=== PATIENT | female | born 1935 | race Caucasian/White ===

== ENCOUNTER 2018-07-24 07:36 | Day surgery (SDC) | payer MEDICARE ==
[~2018-07-24] VITALS: Ht 167.6 cm; Wt 90.7 kg
[~2018-07-24 07:36] MED LIST: ATORVASTATIN CA40 MG PO; CIPROFLOXACN500 MG PO; DILAUDID 2MG2 MG/TA1 PO; DITROPAN XL10 MG PO; FISH OI1; KEFLEX250 MG PO; LOMOTIL2.5 MG PO; MECLIZINE12.5 M1 PO; MECLIZINE25 MG PO; OXYBUTYNIN10 MG PO; PRILOSEC OTC20 MG PO; PRILOSEC20 MG PO; TOVIAZ8 MG PO; TRICOR145 MG PO; TYLENOL325 M2 PO; VYTORIN 10/401 TAB PO; ZOFRAN ODT4 MG PO
[2018-07-24 10:03] VITALS: BP 92/54
== END 2018-07-24 10:00 | disposition home or self-care (01) ==
LOC: ENDO 07:36 → ORM 11:15 → ENDO 11:15
PROVIDERS: ATTEND Surgery
PROC: 0DB48ZX Excision of Esophagogastric Junction, Via Natural or Artificial Opening Endoscopic, Diagnostic (ICD-10-PCS; principal; 2018-07-24)
PROC: 0DB78ZX Excision of Stomach, Pylorus, Via Natural or Artificial Opening Endoscopic, Diagnostic (ICD-10-PCS; 2018-07-24)
DX: R13.10 Dysphagia, unspecified (principal); K21.0 Gastro-esophageal reflux disease with esophagitis; K29.50 Unspecified chronic gastritis without bleeding; K44.9 Diaphragmatic hernia without obstruction or gangrene

== ENCOUNTER 2021-04-19 14:11 | Observation (INO) | payer MEDICARE ==
[~2021-04-19] VITALS: Ht 167.6 cm; Wt 90.0 kg
--- NOTE | 2021-04-19 14:11 | NUR ---
PT TO ROOM VIA WC IMMEDIATELY; DR BUSH AT BEDSIDE
[2021-04-19 14:50] LABS: HEMATOCRIT 45.1 % (37.0-47.0); HEMOGLOBIN 14.9 g/dl (12.0-16.0); IMMATURE GRANULOCYTES 0.1 % (0.0-5.0); MEAN CELL VOLUME 97.6 fL CALC (80.0-100.0); MEAN CORPUSCULAR HGB 32.3 pG CALC (26.0-32.0); NEUT# 5.15 thou/uL (2.00-7.15); RED BLOOD COUNT 4.62 mill/uL (4.20-5.60); RED CELL DISTRI WIDTH 13.1 % (11.5-15.5)
[2021-04-19 14:53] LABS: ALBUMIN 4.1 g/dL (3.2-5.0); ALKALINE PHOSPHATASE 65 u/l (38-126); AMYLASE 53 u/l (30-110); ANION GAP 14 (6-22 (CALC)); BILIRUBIN, TOTAL 0.9 mg/dL (0.0-1.4); BUN 11 mg/dL (8-23); BUN/CREATININE RATIO 14 (12-20 (CALC)); CARBON DIOXIDE 24 mmol/l (22-30); CHLORIDE 98 mmol/l (95-108); CREATININE 0.8 mg/dL (0.5-1.0); GFR > 60 ML/MIN (>=60 (CALC)); GFR FOR AFR.AMER. > 60 ML/MIN (>=60 (CALC)); LIPASE 34 u/l (23-300); MAGNESIUM 1.7 mg/dL (1.6-2.3); POTASSIUM 4.3 mmol/l (3.5-5.1); SGOT/AST 34 u/l (9-36); SODIUM 132 mmol/l (137-146); TOTAL PROTEIN 8.2 g/dL (6.3-8.2)
[2021-04-19 15:00] LABS: ACT PARTIAL THROMBO TIME 25.2 SECONDS (20.0-32.5); INTERNATIONAL NORMALIZED RATIO 1.1 RATIO (0.7-1.3); PROTHROMBIN TIME 11.9 SECONDS (9.0-12.5)
--- NOTE | 2021-04-19 15:16 | NUR ---
PT AMBULATING TO THE BATHROOM FOR COLLECTION OF UA.
[2021-04-19 15:23] LABS: TSH, 3RD GENERATION 1.53 uIU/mL (0.47 - 4.68)
[2021-04-19 15:37] LABS: URINE BILIRUBIN - DIPSTICK NEGATIVE (NEGATIVE); URINE BLOOD DIPSTICK NEGATIVE (NEGATIVE); URINE COLOR YELLOW; URINE GLUCOSE - DIPSTICK NEGATIVE (NEGATIVE); URINE KETONE NEGATIVE (NEGATIVE); URINE PH 5.5 (4.5-8.0); URINE PROTEIN - DIPSTICK NEGATIVE (NEG-TRACE); URINE UROBILINOGEN - DIPSTICK 0.2 E.U./dL (0.2)
[2021-04-19 15:40] LABS: URINE LEUK ESTERASE MODERATE (NEGATIVE); URINE NITRITE - DIPSTICK NEGATIVE (Negative); URINE SQUAMOUS EPITHELIAL CELL MANY EPI/hpf (0-FEW)
--- NOTE | 2021-04-19 16:53 | NUR ---
PT UP TO BATHROOM WITH STEADY GAIT. IV FLUIDS CONTINUE TO INFUSE WITHOUT DIFFICULTY.
--- NOTE | 2021-04-19 17:42 | NUR ---
IV FLUIDS COMPLETED. PENDING ADMISSION. NO CONCERNS VOICED. CALL LIGHT WITHIN REACH. BED IN LOW POSITION.
--- NOTE | 2021-04-19 18:24 | NUR ---
DINNER PROVIDED TO PT. SITTING ON SIDE OF BED WITH EASE. ALL ITEMS WITHIN REACH.
--- NOTE | 2021-04-19 20:22 | NUR ---
TELEPHONE REPORT GIVEN TO Jason MARAVILLA RN ON [employer]
--- NOTE | 2021-04-19 20:39 | NUR ---
PT UP TO ROOM 262 VIA WC, ACCOMPANIED BY Matthew APRDO LPN.
[2021-04-19 20:40] VITALS: BP 133/61
--- NOTE | 2021-04-19 21:30 | NUR ---
PATIENT ARRIVED TO FLOOR AT 2039 VIA WHEELCHAIR, PATIENT AMBULATORY WITH ONE ASSIST, PATIENT ALERT ORIENTED, DENIES PAIN OR DISCOMFORTS AT THIS TIME, ADMISSION ASSESSMENT COMPLETED, PATIENT IS HOOKED ON TELEMETRY, ORINTED TO ROOM AND CALL LIGHT SYSTEM.
--- NOTE | 2021-04-19 22:11 | NUR ---
PATIENT MOVED TO ROOM 263, R/T TELEVISION MALFUNCTION.REGISTRATION AWARE.
[2021-04-20] VITALS (7 sets, daily range): BP systolic 100–151; BP diastolic 61–93
--- NOTE | 2021-04-20 | NUR ---
PATIENT RESTING IN BED WITH EYES CLOSED, BREATHING EVEN UN;ABORED CALL LIGHTT AT REACH.
--- NOTE | 2021-04-20 04:15 | NUR ---
RECEIVED A PHONE CALL FROM ED, PATIENT HEART RATE WAS 135 BPM, PATIENT STATED JUST GOT BACK FROM THE BATHROOM, ASSESSED HR IS BACK AT [phone] WILL CONTINUE TO MONITOR.
--- NOTE | 2021-04-20 04:25 | NUR ---
RECEIVED ANOTHER CALL FROM ED, PATIENT HAS RHTHM CHANGED AFIB, EKG ORDERED.
--- NOTE | 2021-04-20 04:39 | NUR ---
PATIENT DENIES CHEST DISCOMFORTS, V/S TAKEN FOLLWS: BP 148/81 TEMP 97.1 P85 POX 98%, EKG TAKEN,PATIENT IS ASYMPTOMATIC, ED CALLED ABOUT EKG RESULT.WILL CONTINUE TO MONITOR.
[2021-04-20 06:33] LABS: CHOLESTEROL HDL RATIO 4.3 (<4.4 (CALC)); MAGNESIUM 1.7 mg/dL (1.6-2.3)
[2021-04-20] MEDS ORDERED: DITROPAN5 MG/TA1 PO ×2 (07:18→07:19)
--- NOTE | 2021-04-20 07:24 | NUR ---
PT note Patient is screened for PT intervention and no needs are identified with chart review.
--- NOTE | 2021-04-20 07:54 | NUR ---
PT SITTING IN BED. A&O X4. NO DISTRESS NOTED. PT DENIES ANY CP AT THIS TIME. CURRENTLY SR ON MONITOR WITH A RATE OF 85 WITH 1DEGREEE AVB. CLEAR BREATH SOUNDS UPON AUSCULTATION. ACTIVE BOWEL SOUNDS X4 QUADRANTS. #20G & #20G RFA HEALTHY AND PATENT. ASSESSMENT COMPLETED. DISCUSSED POC. CALL LIGHT WITHIN REACH.
--- NOTE | 2021-04-20 09:31 | NUR ---
DR DAVIS AND Lexi CASTELLANOS APRN AT BEDSIDE DISCUSSING POC
--- NOTE | 2021-04-20 10:50 | NUR ---
PT SITTING IN BED. NO DISTRESS NOTED. CALL LIGHT WITHIN REACH.
--- NOTE | 2021-04-20 16:50 | NUR ---
RT AT BEDSIDE OBTAINING EKG
--- NOTE | 2021-04-20 19:00 | NUR ---
REPORT RECEIVED FROM JATIN, PATIENT RESTING IN BED, CALL LIGHT AT REACH.
--- NOTE | 2021-04-20 20:00 | NUR ---
PATIENT ALERT ORINETED ABLE TO MAKE NEEDS KNOWN, WITH SALINE LOCK ON RAC G20 AMD RT FOREARM G20, BOTH PATENT FLUSHES WELL, HOOKED ON TELEMETRY SR 82 WITH PAC/ 1 DEGREE AVB, DENIES CHEST DISCOMFORTS, IS C/O OF HEADACHE, STATED HAS NOT HAVE A GOOD SLEEP, PRN TYLENOL WAS GIVEN EARLIER, LUNG SOUND CLEAR, ACTIVE BOWEL SOUNDS, WILL CONTINUE TO MONITOR, CALL LIGHT AT REACH.
--- NOTE | 2021-04-21 00:17 | NUR ---
PATIENT RESTING IN BED STILL C/O HEADACHE DUE MOTRIN GIVEN AT THIS TIME, BREATHING UNLABORED, DENIES CHEST DISCOMFORTS, CALL LIGHT AT REACH.
--- NOTE | 2021-04-21 02:32 | NUR ---
RECEIVED A PHONE CALL FROM ED, PATIENT READING 2ND AV BLOCK, PATIENT DENIES SHEST PRESSURE OR DISCOMFORTS, V/S TAKEN FOLLOWS: BP 101/59 HR 61, POX 94% ON RA, CALLED ED PATIENT BACK TO SR 72, WILL CONTINUE TO MONITOR.
[2021-04-21 02:35] VITALS: BP 101/59
[2021-04-21 04:07] VITALS: BP 120/62
--- NOTE | 2021-04-21 04:43 | NUR ---
PATIENT RESTING IN BED, DENIES PAIN OR DISCOMFORTS AT THIS TIME, CALL LIGHT AT REACH.
[2021-04-21 05:47] LABS: HEMATOCRIT 42.5 % (37.0-47.0); MEAN CELL VOLUME 99.1 fL CALC (80.0-100.0); MEAN CORPUSCULAR HGB 32.6 pG CALC (26.0-32.0); MEAN CORPUSCULAR HGB CONC 32.9 g/dL CAL (32.0-36.0); RED BLOOD COUNT 4.29 mill/uL (4.20-5.60); RED CELL DISTRI WIDTH 13.6 % (11.5-15.5)
[2021-04-21 06:08] LABS: ANION GAP 13 (6-22 (CALC)); BUN 12 mg/dL (8-23); BUN/CREATININE RATIO 15 (12-20 (CALC)); CARBON DIOXIDE 25 mmol/l (22-30); CHLORIDE 100 mmol/l (95-108); CREATININE 0.8 mg/dL (0.5-1.0); GFR > 60 ML/MIN (>=60 (CALC)); GFR FOR AFR.AMER. > 60 ML/MIN (>=60 (CALC)); MAGNESIUM 2.1 mg/dL (1.6-2.3); POTASSIUM 4.3 mmol/l (3.5-5.1); SODIUM 133 mmol/l (137-146)
--- NOTE | 2021-04-21 07:00 | NUR ---
PT REPORT RECEIVED FROM NIGHT NURSEGITA
--- NOTE | 2021-04-21 08:00 | NUR ---
PT WAS FOUND RESTING IN BED IN SEMI-DAAMS'S POSITION;PT IS A&OX3;VS AND ASSESSMENT WERE COMPLETED;PT HAS NO REPORTS OF PAIN AT THIS TIME;HEART SOUNDS ARE REGULAR IN RATE AND RHYTHM;TELE IS IN PLACE;LUNG SOUNDS ARE CLEAR;RESPIRATIONS ARE EVEN AND UNLABORED ON RA;ABDOMEN IS SOFT WITH ACTIVE BOWEL SOUNDS ASCULTATED IN ALL QUARANTS;PT HAS TRACE EDEMA PRESENT IN ANKLES BILATERALLY;#20G IV IN RAC AND #20G IV IN RFA ARE SL, PATENT AND APPEAR FREE OF COMPLICATIONS AT THIS TIME;SAFETY PRECAUTIONS IN PLACE;CALL LIGHT WITHIN REACH;PT ENCOURAGED TO CALL WITH ANY NEEDS OR CONCERNS;WILL CONTINUE TO MONITOR.
--- NOTE | 2021-04-21 09:07 | NUR ---
AND DAVIDSON JOHNSON AT BEDSIDE DISCUSSING POC WITH PT
[2021-04-21] MEDS ORDERED: OMNICEF300 MG PO (11:24)
[2021-04-21] MEDS ORDERED: PRILOSEC OTC20 MG PO (11:25)
--- NOTE | 2021-04-21 12:00 | NUR ---
PT WAS FOUND RESTING IN BED EATING LUNCH;PT IS REPORTING NO PAIN AT THIS TIME;TELE IS IN PLACE;PT IS PREPARING FOR DC LATER TODAY;SAFETY PRECAUTIONS IN PLACE;CALL LIGHT WITHIN REACH;WILL CONTINUE TO MONITOR.
[2021-04-21] MEDS ORDERED: PROTONIX40 M2 PO (14:49)
--- NOTE | 2021-04-21 15:56 | NUR ---
Discharge instructions given. Patient verbalizes understanding of same. Discharged in stable condition via Wheelchair to Home with family. All belongings sent with pt. DISCHARGE PACKET WAS GIVEN;DISCHARGE INSTRUCTIONS AND MEDICATIONS WERE EXPLAINED TO PT;PT EXPRESSED UNDERSTANDING AND HAD NO FURTHER QUESTIONS;SIGNATURE WAS OBTAINED;TELE WAS REMOVED;IV WAS REMOVED WITH NO COMPLICATIONS AND CATHETER INTACT; PT WAS TRANSPORTED TO [facility] VIA IN STABLE CONDITION ACCOMPANIED BY STAFF;ALL PT BELONGINGS WERE SENT WITH PT;PT WILL BE TRANSPORTED HOME WITH FAMILY
== END 2021-04-21 15:06 | disposition home or self-care (01) ==
LOC: ED 14:11 → ED-I 17:00 → ED 17:10 → MS2 17:11
PROVIDERS: Nurse Practitioner; ADMIT Internal Medicine; ATTEND Internal Medicine
DX: R07.9 Chest pain, unspecified (principal); N39.0 Urinary tract infection, site not specified; I44.1 Atrioventricular block, second degree; I10 Essential (primary) hypertension; K21.9 Gastro-esophageal reflux disease without esophagitis; E78.5 Hyperlipidemia, unspecified; K29.70 Gastritis, unspecified, without bleeding; B96.20 Unspecified Escherichia coli [E. coli] as the cause of diseases classified elsewhere; Z20.822 Contact with and (suspected) exposure to COVID-19
CPT/HCPCS: G0378; J3475; Q9967

== ENCOUNTER 2021-05-01 08:15 | Observation (INO) | payer MEDICARE ==
[~2021-05-01] VITALS: Ht 167.6 cm; Wt 90.0 kg
[~2021-05-01 08:15] MED LIST changes: +DITROPAN5 MG/TA1 PO; +OMNICEF300 MG PO; +PROTONIX40 M2 PO
[2021-05-01] MEDS ORDERED: PANTOPRAZOLE SO40 M1 PO (08:39)
[2021-05-01 09:06] LABS: HEMATOCRIT 45.1 % (37.0-47.0); HEMOGLOBIN 15.2 g/dl (12.0-16.0); IMMATURE GRANULOCYTES 0.1 % (0.0-5.0); MEAN CORPUSCULAR HGB 32.3 pG CALC (26.0-32.0); MEAN CORPUSCULAR HGB CONC 33.7 g/dL CAL (32.0-36.0); NEUT# 5.13 thou/uL (2.00-7.15); RED BLOOD COUNT 4.7 mill/uL (4.20-5.60); RED CELL DISTRI WIDTH 13.1 % (11.5-15.5)
[2021-05-01 09:18] LABS: URINE BILIRUBIN - DIPSTICK NEGATIVE (NEGATIVE); URINE BLOOD DIPSTICK NEGATIVE (NEGATIVE); URINE COLOR YELLOW; URINE GLUCOSE - DIPSTICK NEGATIVE (NEGATIVE); URINE KETONE NEGATIVE (NEGATIVE); URINE LEUK ESTERASE TRACE (NEGATIVE); URINE PH 6.5 (4.5-8.0); URINE PROTEIN - DIPSTICK NEGATIVE (NEG-TRACE); URINE UROBILINOGEN - DIPSTICK 0.2 E.U./dL (0.2)
[2021-05-01 09:19] LABS: INTERNATIONAL NORMALIZED RATIO 1.1 RATIO (0.7-1.3); PROTHROMBIN TIME 11.2 SECONDS (9.0-12.5)
[2021-05-01 09:22] LABS: ALKALINE PHOSPHATASE 73 u/l (38-126); ANION GAP 14 (6-22 (CALC)); BUN 12 mg/dL (8-23); BUN/CREATININE RATIO 15 (12-20 (CALC)); CARBON DIOXIDE 25 mmol/l (22-30); CHLORIDE 94 mmol/l (95-108); CREATININE 0.8 mg/dL (0.5-1.0); GFR > 60 ML/MIN (>=60 (CALC)); GFR FOR AFR.AMER. > 60 ML/MIN (>=60 (CALC)); LIPASE 34 u/l (23-300); POTASSIUM 3.8 mmol/l (3.5-5.1); SODIUM 129 mmol/l (137-146)
[2021-05-01 09:23] LABS: URINE NITRITE - DIPSTICK NEGATIVE (Negative)
[2021-05-01 09:27] LABS: MAGNESIUM 1.4 mg/dL (1.6-2.3); SGOT/AST 82 u/l (9-36)
[2021-05-01 15:00] VITALS: BP 125/81
[2021-05-01 19:00] VITALS: BP 104/69
[2021-05-02] VITALS: BP 106/66
[2021-05-02 03:59] VITALS: BP 123/72
[2021-05-02 06:35] LABS: ANION GAP 12 (6-22 (CALC)); BUN 10 mg/dL (8-23); BUN/CREATININE RATIO 14 (12-20 (CALC)); CARBON DIOXIDE 22 mmol/l (22-30); CHLORIDE 99 mmol/l (95-108); CREATININE 0.7 mg/dL (0.5-1.0); GFR > 60 ML/MIN (>=60 (CALC)); GFR FOR AFR.AMER. > 60 ML/MIN (>=60 (CALC)); HEMATOCRIT 39.2 % (37.0-47.0); MEAN CORPUSCULAR HGB 32.6 pG CALC (26.0-32.0); MEAN CORPUSCULAR HGB CONC 32.9 g/dL CAL (32.0-36.0); POTASSIUM 3.6 mmol/l (3.5-5.1); RED BLOOD COUNT 3.96 mill/uL (4.20-5.60); RED CELL DISTRI WIDTH 13.6 % (11.5-15.5); SODIUM 129 mmol/l (137-146)
[2021-05-02 06:47] LABS: HEMOGLOBIN 12.9 g/dl (12.0-16.0)
[2021-05-02 07:38] VITALS: BP 117/63
[2021-05-02 10:30] VITALS: BP 108/67
[2021-05-02 15:07] VITALS: BP 106/64
[2021-05-02 18:32] VITALS: BP 112/66
[2021-05-03] VITALS: BP 110/68
[2021-05-03 05:03] VITALS: BP 109/73
[2021-05-03 06:18] LABS: ANION GAP 11 (6-22 (CALC)); BUN 9 mg/dL (8-23); BUN/CREATININE RATIO 13 (12-20 (CALC)); CARBON DIOXIDE 22 mmol/l (22-30); CHLORIDE 98 mmol/l (95-108); CREATININE 0.6 mg/dL (0.5-1.0); GFR > 60 ML/MIN (>=60 (CALC)); GFR FOR AFR.AMER. > 60 ML/MIN (>=60 (CALC)); MAGNESIUM 1.7 mg/dL (1.6-2.3); POTASSIUM 3.7 mmol/l (3.5-5.1); SODIUM 127 mmol/l (137-146)
[2021-05-03 06:21] LABS: HEMATOCRIT 38.2 % (37.0-47.0); HEMOGLOBIN 12.7 g/dl (12.0-16.0); MEAN CELL VOLUME 97.7 fL CALC (80.0-100.0); MEAN CORPUSCULAR HGB 32.5 pG CALC (26.0-32.0); MEAN CORPUSCULAR HGB CONC 33.2 g/dL CAL (32.0-36.0); RED BLOOD COUNT 3.91 mill/uL (4.20-5.60); RED CELL DISTRI WIDTH 13.5 % (11.5-15.5)
[2021-05-03 06:59] VITALS: BP 114/73
[2021-05-03 11:17] VITALS: BP 116/61
[2021-05-03] MEDS ORDERED: LOPRESSOR25 MG PO (12:51)
[2021-05-03] MEDS ORDERED: PRILOSEC OTC20 MG PO (12:51)
[2021-05-03] MEDS ORDERED: PEPCID20 MG PO (12:51)
[2021-05-03 14:15] VITALS: BP 97/58
== END 2021-05-03 17:15 ==
LOC: ED 08:15 → ED-I 11:33 → ED 12:03 → MS2 12:04
PROVIDERS: Family Medicine; Nurse Practitioner; ADMIT Hospitalist; ATTEND Hospitalist
DX: R53.1 Weakness (principal); E83.42 Hypomagnesemia; E87.1 Hypo-osmolality and hyponatremia; K29.70 Gastritis, unspecified, without bleeding; I10 Essential (primary) hypertension; K21.9 Gastro-esophageal reflux disease without esophagitis; E78.5 Hyperlipidemia, unspecified; I44.1 Atrioventricular block, second degree; Z20.822 Contact with and (suspected) exposure to COVID-19
CPT/HCPCS: G0378; J1650; J3475; Q9967

== ENCOUNTER 2022-09-08 11:52 | Emergency (ER) | payer MEDICARE ==
[~2022-09-08] VITALS: Ht 167.6 cm; Wt 89.5 kg
[~2022-09-08 11:52] MED LIST changes: +LOPRESSOR25 MG PO; +PANTOPRAZOLE SO40 M1 PO; +PEPCID20 MG PO
[2022-09-08 12:04] VITALS: BP 131/79
[2022-09-08 12:15] VITALS: BP 131/79
[2022-09-08 12:31] VITALS: BP 139/78
[2022-09-08 12:45] VITALS: BP 140/80
[2022-09-08 13:13] LABS: HEMATOCRIT 41.7 % (37.0-47.0); HEMOGLOBIN 13.8 g/dl (12.0-16.0); IMMATURE GRANULOCYTES 0.3 % (0.0-5.0); MEAN CELL VOLUME 97.9 fL CALC (80.0-100.0); MEAN CORPUSCULAR HGB 32.4 pG CALC (26.0-32.0); MEAN CORPUSCULAR HGB CONC 33.1 g/dL CAL (32.0-36.0); NEUT# 4.84 thou/uL (2.00-7.15); RED BLOOD COUNT 4.26 mill/uL (4.20-5.60); RED CELL DISTRI WIDTH 12.9 % (11.5-15.5)
[2022-09-08 13:30] LABS: ALBUMIN 3.8 g/dL (3.2-5.0); ALKALINE PHOSPHATASE 79 u/l (38-126); ANION GAP 10 (6-22 (CALC)); BILIRUBIN, TOTAL 0.7 mg/dL (0.0-1.4); BUN 13 mg/dL (8-23); BUN/CREATININE RATIO 15 (12-20 (CALC)); CARBON DIOXIDE 28 mmol/l (22-30); CHLORIDE 100 mmol/l (95-108); CREATININE 0.9 mg/dL (0.5-1.0); GFR FOR AFR.AMER. > 60 ML/MIN (>=60 (CALC)); GFR OTHER RACES 59 ML/MIN (>=60 (CALC)); POTASSIUM 4.7 mmol/l (3.5-5.1); SGOT/AST 38 u/l (9-36); SODIUM 134 mmol/l (137-146); TOTAL PROTEIN 7.1 g/dL (6.3-8.2)
[2022-09-08 15:23] VITALS: BP 140/80
== END 2022-09-08 15:28 | disposition home or self-care (01) ==
LOC: ED 11:52
PROVIDERS: Nurse Practitioner
PROC: 0HQEXZZ Repair Left Lower Arm Skin, External Approach (ICD-10-PCS; principal; 2022-09-08)
DX: S51.012A Laceration without foreign body of left elbow, initial encounter (principal); S40.811A Abrasion of right upper arm, initial encounter; M54.6 Pain in thoracic spine; M54.2 Cervicalgia; E78.5 Hyperlipidemia, unspecified; K21.9 Gastro-esophageal reflux disease without esophagitis; W07.XXXA Fall from chair, initial encounter

== ENCOUNTER 2022-09-21 17:21 | Inpatient (IN) | payer MEDICARE ==
[~2022-09-21] VITALS: Ht 167.6 cm; Wt 81.8 kg
[2022-09-21] VITALS (8 sets, daily range): BP systolic 87–139; BP diastolic 42–87
[2022-09-21 18:12] LABS: BASO% 0.1 % (0-3); EOS% 0.1 % (0-8); HEMATOCRIT 41.3 % (37.0-47.0); HEMOGLOBIN 14.1 g/dl (12.0-16.0); IMMATURE GRANULOCYTES 0.2 % (0.0-5.0); LYMPH% 5.3 % (15-41); MEAN CELL VOLUME 94.9 fL CALC (80.0-100.0); MEAN CORPUSCULAR HGB 32.4 pG CALC (26.0-32.0); MEAN CORPUSCULAR HGB CONC 34.1 g/dL CAL (32.0-36.0); MONO% 9.1 % (2-13); NEUT# 14.61 thou/uL (2.00-7.15); NEUT% 85.2 % (42-76); RED BLOOD COUNT 4.35 mill/uL (4.20-5.60); RED CELL DISTRI WIDTH 13.5 % (11.5-15.5)
[2022-09-21 18:36] LABS: ALBUMIN 4.1 g/dL (3.2-5.0); ALKALINE PHOSPHATASE 89 u/l (38-126); ANION GAP 14 (6-22 (CALC)); BILIRUBIN, TOTAL 0.9 mg/dL (0.0-1.4); BUN 21 mg/dL (8-23); BUN/CREATININE RATIO 19 (12-20 (CALC)); CARBON DIOXIDE 27 mmol/l (22-30); CHLORIDE 97 mmol/l (95-108); CREATININE 1.1 mg/dL (0.5-1.0); GFR FOR AFR.AMER. 57 ML/MIN (>=60 (CALC)); GFR OTHER RACES 47 ML/MIN (>=60 (CALC)); POTASSIUM 4.5 mmol/l (3.5-5.1); SGOT/AST 30 u/l (9-36); SODIUM 134 mmol/l (137-146); TOTAL PROTEIN 7.7 g/dL (6.3-8.2)
[2022-09-22] VITALS (7 sets, daily range): BP systolic 96–128; BP diastolic 47–62
[2022-09-22 05:49] LABS: BASO% 0.2 % (0-3); EOS% 0.5 % (0-8); HEMATOCRIT 35.7 % (37.0-47.0); IMMATURE GRANULOCYTES 0.2 % (0.0-5.0); LYMPH% 17.2 % (15-41); MEAN CELL VOLUME 97.3 fL CALC (80.0-100.0); MEAN CORPUSCULAR HGB CONC 33.9 g/dL CAL (32.0-36.0); MONO% 10.8 % (2-13); NEUT# 9.17 thou/uL (2.00-7.15); NEUT% 71.1 % (42-76); RED BLOOD COUNT 3.67 mill/uL (4.20-5.60); RED CELL DISTRI WIDTH 13.6 % (11.5-15.5)
[2022-09-22 05:51] LABS: HEMOGLOBIN 12.1 g/dl (12.0-16.0)
[2022-09-22 06:02] LABS: ALKALINE PHOSPHATASE 61 u/l (38-126); ANION GAP 10 (6-22 (CALC)); BILIRUBIN, TOTAL 0.6 mg/dL (0.0-1.4); BUN 20 mg/dL (8-23); BUN/CREATININE RATIO 24 (12-20 (CALC)); CARBON DIOXIDE 24 mmol/l (22-30); CHLORIDE 103 mmol/l (95-108); CREATININE 0.8 mg/dL (0.5-1.0); GFR FOR AFR.AMER. > 60 ML/MIN (>=60 (CALC)); GFR OTHER RACES > 60 ML/MIN (>=60 (CALC)); POTASSIUM 4.2 mmol/l (3.5-5.1); SGOT/AST 21 u/l (9-36); SODIUM 133 mmol/l (137-146)
[2022-09-22 06:05] LABS: ALBUMIN 2.9 g/dL (3.2-5.0); TOTAL PROTEIN 5.7 g/dL (6.3-8.2)
[2022-09-22 08:40] LABS: URINE BILIRUBIN - DIPSTICK NEGATIVE (NEGATIVE); URINE BLOOD DIPSTICK NEGATIVE (NEGATIVE); URINE COLOR YELLOW; URINE GLUCOSE - DIPSTICK NEGATIVE (NEGATIVE); URINE KETONE TRACE mg/dL (NEGATIVE); URINE LEUK ESTERASE NEGATIVE (NEGATIVE); URINE PH 5.5 (4.5-8.0); URINE PROTEIN - DIPSTICK NEGATIVE (NEG-TRACE); URINE SPECIFIC GRAVITY 1.025; URINE UROBILINOGEN - DIPSTICK 0.2 E.U./dL (0.2)
[2022-09-22 08:58] LABS: URINE NITRITE - DIPSTICK NEGATIVE (Negative)
[2022-09-23] VITALS (8 sets, daily range): BP systolic 113–146; BP diastolic 57–78
[2022-09-23 05:21] LABS: BASO% 0.4 % (0-3); EOS% 2.8 % (0-8); HEMATOCRIT 34.4 % (37.0-47.0); HEMOGLOBIN 11.7 g/dl (12.0-16.0); IMMATURE GRANULOCYTES 0.1 % (0.0-5.0); LYMPH% 18.6 % (15-41); MEAN CELL VOLUME 97.7 fL CALC (80.0-100.0); MEAN CORPUSCULAR HGB 33.2 pG CALC (26.0-32.0); MONO% 9.5 % (2-13); NEUT# 6.88 thou/uL (2.00-7.15); NEUT% 68.6 % (42-76); RED BLOOD COUNT 3.52 mill/uL (4.20-5.60); RED CELL DISTRI WIDTH 13.3 % (11.5-15.5)
[2022-09-23 05:45] LABS: ALBUMIN 2.9 g/dL (3.2-5.0); ALKALINE PHOSPHATASE 59 u/l (38-126); ANION GAP 7 (6-22 (CALC)); BUN 10 mg/dL (8-23); BUN/CREATININE RATIO 16 (12-20 (CALC)); CARBON DIOXIDE 27 mmol/l (22-30); CHLORIDE 104 mmol/l (95-108); CREATININE 0.6 mg/dL (0.5-1.0); GFR FOR AFR.AMER. > 60 ML/MIN (>=60 (CALC)); GFR OTHER RACES > 60 ML/MIN (>=60 (CALC)); POTASSIUM 4.3 mmol/l (3.5-5.1); SGOT/AST 22 u/l (9-36); SODIUM 133 mmol/l (137-146); TOTAL PROTEIN 5.7 g/dL (6.3-8.2)
[2022-09-23 05:46] LABS: BILIRUBIN, TOTAL 0.3 mg/dL (0.0-1.4)
[2022-09-24] VITALS (10 sets, daily range): BP systolic 105–153; BP diastolic 54–78
[2022-09-25 04:33] VITALS: BP 103/69
[2022-09-25 05:10] VITALS: BP 112/70
[2022-09-25 05:45] LABS: ANION GAP 9 (6-22 (CALC)); BUN 4 mg/dL (8-23); BUN/CREATININE RATIO 7 (12-20 (CALC)); CARBON DIOXIDE 29 mmol/l (22-30); CHLORIDE 99 mmol/l (95-108); CREATININE 0.6 mg/dL (0.5-1.0); GFR FOR AFR.AMER. > 60 ML/MIN (>=60 (CALC)); GFR OTHER RACES > 60 ML/MIN (>=60 (CALC)); POTASSIUM 4.1 mmol/l (3.5-5.1); SODIUM 133 mmol/l (137-146)
[2022-09-25 06:15] VITALS: BP 124/61
[2022-09-25 10:22] VITALS: BP 107/73
[2022-09-25 10:37] VITALS: BP 90/55
[2022-09-25 14:25] VITALS: BP 147/64
== END 2022-09-25 16:15 | disposition home health service (06) | DRG 871 ==
LOC: ED 17:21 → ED-I 19:00 → ED 19:04 → MS2 19:05
PROVIDERS: Family Medicine; Nurse Practitioner Family; ADMIT Internal Medicine; ATTEND Internal Medicine
DX: A41.9 Sepsis, unspecified organism (principal); J18.9 Pneumonia, unspecified organism; J96.01 Acute respiratory failure with hypoxia; J44.0 Chronic obstructive pulmonary disease with (acute) lower respiratory infection; R65.20 Severe sepsis without septic shock; I10 Essential (primary) hypertension; E78.5 Hyperlipidemia, unspecified; K21.9 Gastro-esophageal reflux disease without esophagitis; M19.90 Unspecified osteoarthritis, unspecified site; Z95.0 Presence of cardiac pacemaker; Z20.822 Contact with and (suspected) exposure to COVID-19
CPT/HCPCS: J0131; J1650

== ENCOUNTER 2022-10-22 12:34 | Observation (INO) | payer MEDICARE ==
[2022-10-22] VITALS (12 sets, daily range): BP systolic 128–149; BP diastolic 62–80
[~2022-10-22] VITALS: Ht 167.6 cm; Wt 85.9 kg
[2022-10-22 13:44] LABS: BASO% 0.2 % (0-3); EOS% 0.5 % (0-8); HEMATOCRIT 40.2 % (37.0-47.0); HEMOGLOBIN 13.5 g/dl (12.0-16.0); IMMATURE GRANULOCYTES 0.6 % (0.0-5.0); LYMPH% 8.3 % (15-41); MEAN CELL VOLUME 93.7 fL CALC (80.0-100.0); MEAN CORPUSCULAR HGB 31.5 pG CALC (26.0-32.0); MEAN CORPUSCULAR HGB CONC 33.6 g/dL CAL (32.0-36.0); MONO% 5.3 % (2-13); NEUT# 7.2 thou/uL (2.00-7.15); NEUT% 85.1 % (42-76); RED BLOOD COUNT 4.29 mill/uL (4.20-5.60); RED CELL DISTRI WIDTH 12.9 % (11.5-15.5)
[2022-10-22 14:26] LABS: INTERNATIONAL NORMALIZED RATIO 1.2 RATIO (0.7-1.3); PROTHROMBIN TIME 11.4 SECONDS (9.0-12.5)
[2022-10-22 14:27] LABS: ALBUMIN 3.8 g/dL (3.2-5.0); ALKALINE PHOSPHATASE 72 u/l (38-126); ANION GAP 8 (6-22 (CALC)); BILIRUBIN, TOTAL 0.5 mg/dL (0.02-1.3); BUN 10 mg/dL (8-23); BUN/CREATININE RATIO 14 (12-20 (CALC)); CARBON DIOXIDE 25 mmol/l (22-30); CHLORIDE 104 mmol/l (95-108); CREATININE 0.7 mg/dL (0.5-1.0); GFR FOR AFR.AMER. > 60 ML/MIN (>=60 (CALC)); GFR OTHER RACES > 60 ML/MIN (>=60 (CALC)); POTASSIUM 4.1 mmol/l (3.5-5.1); SGOT/AST 35 u/l (9-36); SODIUM 133 mmol/l (137-146); TOTAL PROTEIN 7.2 g/dL (6.3-8.2)
[2022-10-22 16:22] LABS: URINE BILIRUBIN - DIPSTICK NEGATIVE (NEGATIVE); URINE BLOOD DIPSTICK MODERATE (NEGATIVE); URINE COLOR YELLOW; URINE GLUCOSE - DIPSTICK NEGATIVE (NEGATIVE); URINE KETONE NEGATIVE (NEGATIVE); URINE LEUK ESTERASE TRACE (NEGATIVE); URINE PROTEIN - DIPSTICK NEGATIVE (NEG-TRACE)
[2022-10-22 16:23] LABS: URINE NITRITE - DIPSTICK NEGATIVE (Negative)
[2022-10-22 16:25] LABS: URINE BACTERIA FEW hpf; URINE WBC 0-2 WBC/hpf (0-5); URINE YEAST RARE hpf
[2022-10-22] MEDS ORDERED: XARELTO15 MG PO (23:18)
[2022-10-23 00:28] VITALS: BP 145/73
[2022-10-23 04:58] VITALS: BP 137/64
[2022-10-23 05:59] VITALS: BP 147/72
[2022-10-23 14:57] VITALS: BP 129/63
[2022-10-23 18:59] VITALS: BP 117/54
[2022-10-23 23:47] VITALS: BP 125/67
[2022-10-24 04:05] VITALS: BP 150/77
[2022-10-24 05:21] LABS: BASO% 0.4 % (0-3); EOS% 2.4 % (0-8); HEMATOCRIT 37.3 % (37.0-47.0); HEMOGLOBIN 12.3 g/dl (12.0-16.0); IMMATURE GRANULOCYTES 0.6 % (0.0-5.0); LYMPH% 26.1 % (15-41); MEAN CELL VOLUME 96.1 fL CALC (80.0-100.0); MEAN CORPUSCULAR HGB 31.7 pG CALC (26.0-32.0); MONO% 11.4 % (2-13); NEUT# 4.18 thou/uL (2.00-7.15); NEUT% 59.1 % (42-76); RED BLOOD COUNT 3.88 mill/uL (4.20-5.60); RED CELL DISTRI WIDTH 13.1 % (11.5-15.5)
[2022-10-24 05:42] LABS: ALBUMIN 3.5 g/dL (3.2-5.0); ALKALINE PHOSPHATASE 61 u/l (38-126); ANION GAP 6 (6-22 (CALC)); BILIRUBIN, TOTAL 0.5 mg/dL (0.02-1.3); BUN 6 mg/dL (8-23); BUN/CREATININE RATIO 9 (12-20 (CALC)); CARBON DIOXIDE 30 mmol/l (22-30); CHLORIDE 103 mmol/l (95-108); CREATININE 0.6 mg/dL (0.5-1.0); GFR FOR AFR.AMER. > 60 ML/MIN (>=60 (CALC)); GFR OTHER RACES > 60 ML/MIN (>=60 (CALC)); POTASSIUM 3.8 mmol/l (3.5-5.1); SGOT/AST 40 u/l (9-36); SODIUM 135 mmol/l (137-146); TOTAL PROTEIN 6.6 g/dL (6.3-8.2)
[2022-10-24 06:21] VITALS: BP 153/81
[2022-10-24 09:47] VITALS: BP 144/66
== END 2022-10-24 15:37 | disposition home health service (06) ==
LOC: ED 12:34 → ED-I 17:20 → ED 17:39 → MS2 17:39
PROVIDERS: Emergency Medicine; Nurse Practitioner Family; ADMIT Internal Medicine; ATTEND Internal Medicine
DX: R42 Dizziness and giddiness (principal); R00.0 Tachycardia, unspecified; R10.11 Right upper quadrant pain; J44.9 Chronic obstructive pulmonary disease, unspecified; E78.5 Hyperlipidemia, unspecified; R32 Unspecified urinary incontinence; K21.9 Gastro-esophageal reflux disease without esophagitis; Z95.0 Presence of cardiac pacemaker; Z90.49 Acquired absence of other specified parts of digestive tract
CPT/HCPCS: J1650; Q9967